=== PATIENT | female | born 1990 | race African-American/Black ===

== ENCOUNTER 2019-01-10 13:02 | Inpatient (IN) | payer MEDICAID ==
[2019-01-10 18:48] VITALS: BP 106/65; BMI 29.9
[2019-01-10 18:55] LABS: UDS - AMPHET NEGATIVE QUAL (NEGATIVE); UDS - BARB NEGATIVE QUAL (NEGATIVE); UDS - BENZO NEGATIVE QUAL (NEGATIVE); UDS - COCAINE NEGATIVE QUAL (NEGATIVE); UDS - OPIATE NEGATIVE QUAL (NEGATIVE); UDS - PCP NEGATIVE QUAL (NEGATIVE); UDS - THC NEGATIVE QUAL (NEGATIVE)
[2019-01-10 19:46] LABS: HEMATOCRIT 32.2 % (36.0-48.0); HEMOGLOBIN 10.4 g/dL (12-16); MCH 25.7 pg (26.0-34.0); MCHC 32.3 g/dL (31.0-37.0); MCV 79.7 fL (80.0-100.0); MEAN PLATELET VOLUME 11.3 fL (7.4-10.4); RBC 4.04 10x6/uL (4.00-5.40); RDW 15.4 % (11.5-14.5); WBC 7.8 10x3/uL (4.8-10.8)
[2019-01-11] VITALS (7 sets, daily range): BP systolic 98–114; BP diastolic 65–74
--- NOTE | 2019-01-11 10:39 | NUR ---
BABY AT 1026
--- NOTE | 2019-01-11 11:39 | NUR ---
RECEIVED FROM RECOVERY ROOM S/P C/S FOR INTOLERANCE TO LABOR. ASSESSMENT COMPLETED, SEE SHIFT ASSESSMENT FORM. U/3 FIRM MIDLINE, RUBRA SMALL. IV PATENT RIGHT WRIST, SIDDIQUI DRAINING CLEAR YELLOW URINE AND ATTACHED TO RIGHT LEG. SCD'S IN PLACE AND PLACE ON PUMP, WORKING BILATERALLY. ICE PACK OVER INCISIONAL DRESSING. CLEAN SIMA-PAD X 2 PLACED. ICE WATER AT BEDSIDE. INSTRUCTED TO SIP ON FLUIDS TO BEGIN WITH. SIDE RAIL UP X 2 CALL LIGHT IN REACH. IN NURSERY. NO CURRENT VISITORS.
--- NOTE | 2019-01-11 11:58 | NUR ---
U/3 FIRM MIDLINE, RUBRA SMALL. INSTRUCTED ON INCENTIVE SPIROMETER, USED X 3 AT THIS TIME WITH WEAK COUGH. INSTRUCTED ON SPLINTING OF INCISION, SMALL PILLOW GIVEN FOR USE. DENIES PAIN, CAN MOVE LEFT FOOT SLIGHTLY.
--- NOTE | 2019-01-11 12:13 | NUR ---
U/3 FIRM MIDLINE, RUBRA SMALL TO MOD, CLEAN SIMA-PADS PLACED, NO ACTIVE BLEEDING. VISITORS IN ROOM. DENIES PAIN, MOVES RIGHT LEG SLIGHTLY BACK AND FORTH. DROWSY BUT AROUSES EASILY. SIDE RAILS UP X 2, CALL LIGHT IN REACH.
--- NOTE | 2019-01-11 12:28 | NUR ---
U/3 FIRM, MIDLINE RUBRA SCANT. PLANS TO . FOB IN ROOM, CLEAR LIQUID DIET AT BEDSIDE. DRANK 250 ML WATER. SIDE RAILS X 2 , CALL LIGHT IN REACH.
--- NOTE | 2019-01-11 13:05 | NUR ---
POSITIONED TO RIGHT SIDE AFTER USING INCENTIVE SPIROMETER. RUBRA SMALL TO MOD, CLEAN SIMA-PADS X 2 PLACED, U/3 FIRM MIDLINE. NO REQUESTS. DENIES PAIN, UNABLE TO MOVE LE COMPLETELY, CANNOT BEND AT KNEES YET. SCDS IN PLACE AND FUNCTIONING, SIDDIQUI DRAINING. SIDERAILS UP X 2, CALL LIGHT IN REACH. FOB IN ROOM.
--- NOTE | 2019-01-11 13:22 | NUR ---
100 CLEAR EMESIS. DISCUSSED NAUSEA AND ENCOURAGED TO CONSIDER ONLY ICE CHIPS FOR AWHILE. OFFERED PHENERGAN WHICH SHE DESIRES. PHENERGAN 12.5 MG GIVEN SLOW IVP. NO SIGNS OF INFILTRATION. SIDE RAILS UP X 2, CALL LIGHT IN REACH, FOB AND INFANT IN ROOM. COOL WASHCLOTH PLACED BACK OF NECK. CLEAN EMESIS BAG GIVEN.
--- NOTE | 2019-01-11 14:00 | NUR ---
FEELING BETTER AFTER PHENERGAN, DESIRES TO TRY TO EAT JELLO. DROWSY BUT EASILY AROUSED. FOB IN ROOM. SIDE RAILS UP X 2, CALL LIGHT IN REACH. MOVE LE SLIGHTLY. DENIES PAIN.
--- NOTE | 2019-01-11 14:23 | NUR ---
DENIES NAUSE BUT FEELS DROWSY. EXPLAINED THAT IS PROBABLY THE PHENERGAN. MOVE LE SLIGHTLY, DENIES PAIN. SIDERAILS UP X 2, CALL LIGHT IN REACH.
--- NOTE | 2019-01-11 14:42 | NUR ---
SLEEPING, HOLDING PHONE IN HAND. RESPIRATIONS EVEN. AND FOB IN NURSERY TO GIVE BATH. SIDERAILS UP X 2, CALL LIGHT IN REACH.
--- NOTE | 2019-01-11 15:41 | NUR ---
SITTING UP IN BED. AWAKE. 2-3/10 INCISIONAL ACHING, FRESH ICE PACK PLACED. CAN MOVE LE SOME BUT CANNOT BEND COMPLETELY AT KNEES AND CANNOT LIFT BUTTOCKS UP. CLEAN CHUX AND PER-PADS PLACED. U/2 FIRM MIDLINE, RUBRA MOD ON PAD, NO ACTIVE BLEEDING NOTED. SIDDIQUI DRAINING, IV INFUSING WITHOUT EVIDENCE OF INFILTRATION. DESIRES TO TRY TO EAT. DENIES NAUSEA. WILL TRY JELLO AND SIPS OF FLUIDS. FOB IN ROOM. SIDERAILS UP X 2, CALL LIGHT IN REACH. TO CALL IF PAIN INCREASES OR NEEDING ANYTHING FOR PAIN. VERBALIZED UNDERSTANDING.
--- NOTE | 2019-01-11 15:59 | NUR ---
DILAUDED 1 MG GIVEN SLOW IVP FOR 3/10 INCISIONAL ACHING. UNABLE TO MOVE LE FULLY BUT SAYS SHE FEELS ACHING. DESIRED PAIN MEDICATION AT THIS TIME. SIDE RAILS UP X 2, CALL LIGHT IN REACH.
--- NOTE | 2019-01-11 16:40 | NUR ---
SITTING UP IN BED LOOKING AT CELL PHONE. DENIES PAIN AT THIS TIME. REGULAR DIET ON BEDSIDE STAND. SAYS SHE ONLY PLANS TO EAT A LITTLE. DENIES N&V. VISITORS IN ROOM. SIDE RAILS UP X 2, CALL LIGHT IN REACH.
--- NOTE | 2019-01-11 17:25 | NUR ---
PT C/O ITCHING BACK, LEGS, ARMS. DR BERGERON NOTIFIED AND ORDERS RECEIVED FOR BENADRY. EXPLAINED TO PT POSSIBLY FROM THE DILAUDID WHICH IS A FREQUENT COMPLAINT. BENADRYL 25 MG GIVEN SLOW IVP FOR RELIEF OF PRURITIS. EXPLAINED TO PT MAY MAKE HER FEEL DROWSY. HAS PO MEDS ORDER, WILL CONSIDER SWITCHING TO THEM VS IVP DILUADID. VERBALIZED UNDERSTANDING.
--- NOTE | 2019-01-11 18:15 | NUR ---
SITTING UP IN BED TEXTING. DENIES PAIN 0/10. SAYS SHE NO LONGER HAS ITCHING. STILL EATING DINNER. NO REQUESTS. SIDERAILS UP X 2, CALL LIGHT IN REACH.
--- NOTE | 2019-01-11 19:03 | NUR ---
RUBRA MOD ON SIMA-PADS. CLEAN CHUX AND SIMA-PADS PLACED. POSITIONED TO RIGHT SIDE. INCENTIVE SPIROMETER USED X 3, WEAK COUGH. ENCOURAGED TO CONTINUE TO USE HOURLY AND PURPOSE OF USE. VISITORS AND INFANT IN ROOM. SIDDIQUI TRAINING YELLOW URINE. IV INFUSING WITHOUT SIGNS ON INFILTRATION IN RIGHT WRIST. NO REQUESTS. ATE 25% OF REGULAR DIET. SIDE RAILS UP X 2, CALL LIGHT IN REACH.
--- NOTE | 2019-01-11 19:26 | NUR ---
PT. AWAKE AND ORIENTED. SITTING UP IN BED WITH HOB AT 90 DEGREES. CHEERFUL. REPORTS THAT SHE IS PAIN FREE. DENIES ANY NUMBNESS IN LOWER EXTREMITIES. NUMEROUS VISITORS IN ROOM. ABD. DRESSING DRY AND INTACT. ICE CAP NOTED ON DRESSING AREA. SIDDIQUI PATENT AND DRAINING WITH 175CC IN URINE METER. IV INFUSING IN RT WRIST. NO REDNESS NOR EDEMA NOTED. SCDS ON AND FUNCTIONAL. BREATH SOUNDS CLEAR AND BOWEL SOUNDS AUDIBLE. PT. REPORTS THAT SHE HAS BEEN USING INCENTIVE SPIROMETER AND ENCOURAGED TO COUGH AND DEEP BREATH. EXPLAINED IMPORTANCE OF CHANGING POSITION IN BED AND NOT STAYING ON BACK. DISCUSSED THAT SHE WILL TURN WHEN INFANT LEAVES ROOM AND VISITORS.
--- NOTE | 2019-01-11 19:47 | NUR ---
TORADOL 30 MG GIVEN. PAIN SCORE 0 AT THIS TIME. PT. CHEERFUL AND NUMEROUS VISITORS IN ROOM. BEING FED BY VISITOR.
--- NOTE | 2019-01-11 20:26 | NUR ---
SANDWICH TRAY SERVED.
--- NOTE | 2019-01-11 21:02 | NUR ---
DR. BERGERON CALLED AND INQUIRED IF PT. COULD BE NORMALIZED. INFORMED PT. NOT REQUIRING PAIN MEDS AND NO NUMBNESS IN LEGS NOTED. STATES TO PROCEDE WITH NORMALIZING.
--- NOTE | 2019-01-11 21:15 | NUR ---
POC DISCUSSED WITH PT. PT. AGREEABLE TO ALL. IV SALINE LOCKED. PT. INFORMED PAIN MEDS WILL BE ORAL AND SHE NEEDS TO LET NURSE KNOW IF ANYTHING NEEDED. PT. STATED UNDERSTANDING. SIDDIQUI CATH. DCED WITH 150CC IN URINE METER. PT. INFORMED THAT SHE WILL NEED TO CALL NURSE BEFORE SHE GETS UP FIRST TIME. PT. STATES UNDERSTANDING. INQUIRED HOW LONG SCDS WOULD HAVE TO STAY ON. INFORMED PT. THAT WE WOULD LEAVE IN PLACE UNTIL SHE GETS UP TO BATHROOM. EXPLAINED RATIONAL FOR SCD USE AND PT. STATES UNDERSTANDING.
--- NOTE | 2019-01-11 22:40 | NUR ---
PT. LOOKING ON PHONE. DENIES ANY PAIN OR NEEDS. FOB ON SOFA.
--- NOTE | 2019-01-11 22:41 | NUR ---
INFANT BACK TO ROOM PER NBN NURSE.
--- NOTE | 2019-01-12 00:20 | NUR ---
FOB AT JIRA DEVELOPER, REPORTS THAT PT'S NEEDS SOME ASSISTANCE, THIS RN TO ROOM, VS OBTAINED, PT UP TO BR WITH ASSISTANCE, GAIT STEADY, VOIDED 600 MLS OF BLOOD TINGED URINE WITH NO DIFFICULTY, SIMA CARE DONE WITH WET WARM WIPES, ASSISTED PT WITH SIMA CARE, PANTIES AND PADS, CHANGED PINK PAD, BLUE CHUX, TOP SHEET AND BLANKET ON BED, PT BACK TO BED, SCD'S RECONNECTED AND WORKING PROPERLY, FRESH ICE PACK TO ABD, REQUESTED AND SERVED CUP OF ICE, PT DENIES FURTHER NEEDS
[2019-01-12 00:45] VITALS: BP 92/57
--- NOTE | 2019-01-12 00:45 | NUR ---
SALINE LOCK IN RIGHT WRIST INTACT WITH NO REDNESS OR EDEMA, FLUSHED WITH 5MLS OF NS WITH NO DIFFICULTY, ADM TORADOL DILUTED IN 5MLS OF NS SIVP PER MD ORDERS, SALINE LOCK FLUSHED AGAIN, ADM PERCOCET PO PER MD ORDERS, SEE EMAR, PT DENIES FURTHER NEEDS
--- NOTE | 2019-01-12 02:14 | NUR ---
PT RESTING WITH EYES CLOSED, RESP QUIET, NO DISTRESS NOTED, LEFT UNDISTURBED AT THIS TIME, IN OPEN CRIB CART AND FOB AT BEDSIDE
[2019-01-12 03:43] VITALS: BP 101/65
--- NOTE | 2019-01-12 03:43 | NUR ---
PT AWAKE, VISITING WITH FOB, IN OPEN CRIB CART AT BEDSIDE, VS OBTAINED, SCD'S PLACED BACK ON, PT REPORTS REMOVING THEM TO AMB IN ROOM, SCD'S BACK ON AND WORKING PROPERLY, PT DENIES FURTHER NEEDS OR PAIN
--- NOTE | 2019-01-12 04:53 | NUR ---
SITTING WITH INFANT IN HER LAP MAKING PICTURES . CHEERFUL AND DENIES ANY NEEDS.
--- NOTE | 2019-01-12 06:22 | NUR ---
PT. STATES THAT SHE JUST GOT UP TO BATHROOM AND DESIRED PAIN MEDICATION. STATES SHE DESIRES THE SAME SHE HAD EARLIER IN NIGHT. PAIN MED GIVEN ORDERED FOR PAIN SCORE OF 4 OF 10 FOR INCISIONAL PAIN. ICE CAP REFILLED FOR PT. TO PLACE OVER ABD. DRESSING. 500CC URINE WITH CURRENT VOID. PT. CHEERFUL. FOB LYING ON SOFA.
[2019-01-12 07:00] LABS: BASOPHILS 0.1 % (0-2); EOSINOPHILS 0.3 % (0-7); HEMOGLOBIN 9.6 g/dL (12-16); IMMATURE GRANULOCYTES 0.3 % (0-5); LYMPHOCYTES 14.4 % (15-50); MCH 25.4 pg (26.0-34.0); MCV 79.4 fL (80.0-100.0); MEAN PLATELET VOLUME 11.2 fL (7.4-10.4); MONOCYTES 5.3 % (2-11); NEUTROPHILS 79.6 % (40-80); PLATELET COUNT 173 10x3/uL (130-400); RBC 3.78 10x6/uL (4.00-5.40); RDW 15.5 % (11.5-14.5)
[2019-01-12 07:01] LABS: WBC 13.1 10x3/uL (4.8-10.8)
[2019-01-12 07:25] VITALS: BP 101/66
--- NOTE | 2019-01-12 07:33 | NUR ---
SITTING UP IN BED. FOB BABY ON COUCH BOTTLE FEEDING . ALERT AND ORIENTED. SHIFT ASSESSMENT COMPLETED. DENIES NEEDING ANYTHING. DENIES PAIN. VOIDING WITHOUT DIFF. HAS NOT PASSED FLATUS YET. ENCOURAGE OOB AMBULATING IN [place] SEVERAL TIMES TODAY. VERBALIZED UNDERSTANDING. HAS CELL PHONE IN HAND TEXTING. THIS RN HAS NOT SEE PATIENT HOLDING THIS INFANT IN THE LAST TWO DAYS. NURSERY RN NOTIFIED TO BE OBSERVANT. REGULAR DIET AT BEDSIDE. SIDE RAILS UP X 2, CALL LIGHT IN REACH. ICE PACK ON INCISION, DISCUSSED US FOR 24 HOURS. NOT CURRENTLY USING SCD'S SECONDARY TO BEING AMBULATORY.
[2019-01-12 08:13] LABS: RAPID PLASMA REAGIN Non Reactive (Non Reactive)
--- NOTE | 2019-01-12 09:01 | NUR ---
B+, RUBELLA IMMUNE, GBS POSITIVE, RECEIVED TDAP DURING . NON-SMOKER. ANTICIPATE DC HOME TOMORROW.
--- NOTE | 2019-01-12 09:27 | NUR ---
HOLDING INFANT IN ARMS AND LOOKING AT BABY. SAYS SHE DIDN'T HOLD BABY YESTERDAY BECAUSE OF MEDICATIONS. SAYS SHE IS HAPPY WITH AND SMILING. ASKED THAT INFANT BE PLACED IN CRIB NOW SINCE THE IS SLEEPING. PT UP AD SHAMIR TO VOID. WILL SHOWER THIS AM AFTER MD MAKES ROUNDS. DENIES PAIN AT THIS TIME. SIDE RAILS UP X 2, CALL LIGHT IN REACH. PT RAISES BED TO HIGHER POSITION, LOWERS IT WHEN GETTING OUT OF BED.
--- NOTE | 2019-01-12 09:35 | NUR ---
DR BERGERON VISITED PT.
[2019-01-12] MEDS ORDERED: IBUPROFEN800 MG PO (09:37)
[2019-01-12] MEDS ORDERED: PERCOCET 7.5/321 TAB PO (09:38)
--- NOTE | 2019-01-12 10:05 | NUR ---
SITTING UP IN BED. IN CRIB. FOB SLEEPING ON COUCH. DENIES PAIN OR NEEDING ANYTHING. DESIRES TO WAIT TO TAKE SHOWER, WOULD LIKE TO WAIT AT LEAST AN HOUR. NO REQUESTS. TO CALL WHEN READY TO SHOWER OR NEEDING ANYTHING. INSTRUCTED WILL NEED TO AMBULATE IN [place] TODAY. STATES "I HAVE BEEN TO BATHROOM". INSTRUCTED NEEDS TO INCREASE WALKING. VERBALIZED UNDERSTANDING.
--- NOTE | 2019-01-12 11:35 | NUR ---
TALKING ON PHONE BUT SAYS SHE IS READY TO TAKE SHOWER. IN NURSERY. ALL ITEMS FOR SHOWER PLACED IN BR. TO CALL WHEN READY FOR ASSISTANCE. SHOOK HEAD YES.
--- NOTE | 2019-01-12 12:12 | NUR ---
AMBULATING IN ROOM. GETTING READY TO SHOWER. INSTRUCTED ON CARE OF INCISION AND CLEANING. VERBALIZED UNDERSTANDING. FOB IN ROOM WITH . TO CALL IF ANYTHING IS NEEDED. SHOWER CHAIR IN SHOWER, INSTRUCTED ON USE OF EMERGENCY CALL LIGHT IF NEEDED.
--- NOTE | 2019-01-12 12:37 | NUR ---
HAS NOT MADE IT TO SHOWER. VISITORS X 3 AND INFANT IN ROOM. SITTING ON BEDSIDE GETTING READY TO EAT LUNCH.
--- NOTE | 2019-01-12 13:03 | NUR ---
UP IN SHOWER NOW. LINEN CHANGE COMPLETED. FOB IN ROOM WITH .
[2019-01-12 14:11] VITALS: BP 95/57
--- NOTE | 2019-01-12 14:19 | NUR ---
SITTING ON EDGE OF BED EATING LUNCH. VISITORS X 3 IN ROOM WITH . C/O 12/24 BACK ACHING. ENCOURAGED AMBULATION IN [place]. WILL GIVE SCHEDULED MOTRIN.
--- NOTE | 2019-01-12 14:24 | NUR ---
MOTRIN 600 MG GIVEN PO FOR RELIEF OF 6/10 MID BACK STABBING PAIN. STATES "I WAS DOING GOOD UNTIL JUST A FEW MINUTES AGO." SAYS SHE IS PASSING A LITTLE GAS. NO ACUTE DISTRESS NOTED. WILL AMBULATE IN [place] AFTER EATING. VISITORS IN ROOM, BOTTLEFEEDING . SIDE RAILS UP X 2, CALL LIGHT REMAINS IN REACH.
--- NOTE | 2019-01-12 14:25 | NUR ---
INCISION CLEAN AND DRY, INTACT WITH DERMABOND, SIMA-PAD OVER INCISION, REINFORCED IMPORTANCE OF CHANGING PAD FREQUENTLY VERBALIZED UNDERSTANDING.
--- NOTE | 2019-01-12 15:49 | NUR ---
LAYING IN BED WATCHING TV. NO CURRENT VISITORS. INFANT IN CRIB MOVING ARMS AROUND. INSTRUCTED PT NEEDS TO AMBULATE IN [place]. SAYS NO ONE IS THERE TO WATCH BABY, EXPLAINED THAT WE CAN WALK WITH INFANT IN CRIB. PT DESIRES TO WAIT 30 MINS.
--- NOTE | 2019-01-12 16:48 | NUR ---
AMBULATED AROUND L&D X 2. PERCOCET 5 MG GIVEN PO FOR RELIEF OF 7/10 INCISIONAL PULLING AFTER DISCUSSING PAIN MANAGEMENT OPTIONS. AMBULATED TO NURSERY AND WAS SHOWN WHERE SHE CAN GET DRINKS AND SNACKS. ENCOURAGED PT TO GET OOB MUCH POSSIBLE, EXPLAINING THAT THIS WILL HELP HER TO START FEELING BETTER VS LAYING IN BED ALL DAY WHICH CAN INCREASE ACHES AND PAINS. VERBALIZED UNDERSTANDING AND ASKED IF SHE CAN WALK AGAIN WHEN FOB RETURNS. INSTRUCTED SHE CAN WALK ANYTIME SHE WOULD LIKE. REGULAR DIET SERVED. SITTING ON EDGE OF BED. INFANT IN CRIB.
--- NOTE | 2019-01-12 18:03 | NUR ---
SITTING UP IN BED EATING DINNER. VISITOR IN ROOM. INCISIONAL PULLING IS BETTER, NO 09/23. NO REQUESTS. SIDE RAILS UP X 2, CALL LIGHT IN REACH. TO CALL IF ANYTHING IS NEEDED.
--- NOTE | 2019-01-12 19:35 | NUR ---
WALKING IN HALLWAY. GAIT STEADY.
[2019-01-12 19:43] VITALS: BP 106/55
--- NOTE | 2019-01-12 19:43 | NUR ---
WALKING ABOUT IN ROOM. REPORTS PASSING FLATUS. STATES SHE HAS EATEN "A LOT" TODAY. SITS ON SIDE OF BED FOR ASSESSMENT. BREATH SOUNDS CLEAR AND BOWEL SOUNDS ACTIVE. VOIDING WITHOUT DIFFICULTY. ABD. INCISION WITHOUT DRAINAGE OR REDNESS. SIMA PAD NOTED AT INCISION SITE TO WICK MOISTURE. DENIES ANY PAIN IN LOWER EXTREMITIES. SKIN WARM AND DRY.
--- NOTE | 2019-01-12 21:47 | NUR ---
C/O PAIN 01/23 ABD SORENESS, BACK ACHE AND INCISIONAL BURNING. PERCOCET AND SCHEDULED MOTRIN GIVEN PER ORDER AND PT REQUEST. DENIES ADDITIONAL NEEDS. CONVERSING WITH FAMILY CURRENTLY. BED IN LOW POSITION WITH UPPER SIDE RAILS RAISED X2. CALL LIGHT AND PHONE WITHIN REACH. WILL CONTINUE TO MONITOR.
[2019-01-12 23:00] VITALS: BP 98/55
--- NOTE | 2019-01-12 23:00 | NUR ---
PT. ON BACK WITH HOB AT 45 DEGREES FILLING OUT PAPERWORK FOR NURSERY. VITAL SIGNS OBTAINED. PT. REPORTS PAIN RELIEVED FROM EARLIER PAIN MED AND RATES A 2 OF 10 ON PAIN SCALE. IN OPEN CRIB AT BEDSIDE ASLEEP. FOB IN ROOM WITH PT.
--- NOTE | 2019-01-13 00:28 | NUR ---
INFANT TO ROOM FOR FEEDING.PT. DENIES ANY NEEDS.
--- NOTE | 2019-01-13 01:26 | NUR ---
LYING ON BACK WITH HOB AT 30 DEGREES. PT. LOOKING ON PHONE. DENIES ANY NEEDS.
--- NOTE | 2019-01-13 03:00 | NUR ---
AWAKE WHEN THIS NURSE ENTERED ROOM. PT. STATES THAT SHE WAS ASLEEP BUT AWAKENED WHEN DOOR WAS OPENED. DENIES ANY NEEDS.
--- NOTE | 2019-01-13 05:20 | NUR ---
LYING ON BACK WITH HOB AT 30 DEGREES. EYES CLOSED AND RESPIRATIONS UNLABORED.
--- NOTE | 2019-01-13 06:34 | NUR ---
STANDING UP IN ROOM HOLDING AND FEEDING BOTTLE. PT. CHEERFUL AND COMMENTS THAT SHE GOT SOME SLEEP LAST NIGHT.
[2019-01-13 07:26] VITALS: BP 104/58
--- NOTE | 2019-01-13 07:30 | NUR ---
ASSUME CARE OF THIS PATIENT. SITTING UP IN BED, INFANT IN NURSERY. SHIFT ASSESSMENT COMPLETED. SALINE LOCK WAS DC'D BY THIS RN YESTERDAY AFTERNOON WITH TIP INTACT. ANTICIPATE DC HOME TODAY. NEIGHBORHOOD WORKER, B+ RUBELLA IMMUNE RECEIVED TDAP IN CLINIC DURING . NON-SMOKER. SIDE RAILS X 2. CALL LIGHT.
--- NOTE | 2019-01-13 08:18 | NUR ---
SITTING UP IN BED. MOTRIN 600 MG GIVEN FOR RELIEF OF 5/10 ABDOMINAL CRAMPING. NEXT SCHEDULED DOSE DUE AT 1430. INSTRUCTED PT TO LET RN KNOW IF PAIN NOT RELIEVED OR IF SHE NEEDS ADDITIONAL PAIN MED. VERBALIZED UNDERSTANDING. FOB AND IN ROOM. CALL LIGHT IN REACH.
--- NOTE | 2019-01-13 08:45 | NUR ---
DR BERGERON ON L&D MAKING ROUNDS.
--- NOTE | 2019-01-13 09:26 | NUR ---
SITTING UP ON COUCH BOTTLE FEEDING . CRAMPING 0/10 BUT C/O STRETCHING OF INCISION 5/10. DESIRES PERCOCET. PERCOCET 5 MG GIVEN. DC TEACHING COMPLETED TO INCLUDE VERBAL AND WRITTEN INFORMATION ON POST OP C/S CARE, S&S INFECTION, PP DEPRESSION, DANGER SIGNS, BOTTLEFEEDING, BREASTCARE, MEDICATION ADMINISTRATION, AND F/U. VERBALIZED UNDERSTANDING. NO SPECIFIC QUESTIONS AT THIS TIME. WILL DC HOME WHEN INFANT DC'D.
--- NOTE | 2019-01-13 10:56 | NUR ---
AMBULATING IN ROOM. PACKING ITEMS IN PREPARATION FOR DC. SAYS HER INCISIONAL PAIN IS MUCH BETTER. 08/26. NO REQUESTS. VISITORS AND INFANT IN ROOM. WAITING ON INSURANCE CLAIMS EXAMINER FOR DC.
--- NOTE | 2019-01-13 12:45 | NUR ---
DC VIA WHEELCHAIR TO CAR BY Davonte NGUYEN RN NURSERY. IN CARSEAT. ALL BELONGINGS REMOVED FROM ROOM. HAS PRESCRIPTIONS AND WRITTEN INSTRUCTIONS.
--- NOTE | 2019-01-15 07:50 | OP ---
PATIENT NAME: NU WHITE MEDICAL RECORD: [id number] :89 LOCATION:[id number] ADMISSION DATE:01/10/19 SURGEON: SAMUEL LICONA MD DATE OF OPERATION: 01/11/2019 PREOPERATIVE DIAGNOSES: 1. at 40 weeks' gestation. 2. Nonreassuring tracing. POSTOPERATIVE DIAGNOSES: 1. Mother delivered at 40 weeks. 2. Nonreassuring tracing. PROCEDURE: Primary low transverse section. SURGEON: Samuel Licona MD EMT INTERMEDIATE: Jatinder Zavala CRNA ANESTHESIOLOGIST: Dr. Corrales. ANESTHESIA: General anesthetic with endotracheal intubation. FINDINGS: Viable male , vertex presentation, Apgars 9 and 9, weight 3050 grams. Unremarkable uterus, tubes and ovaries bilaterally. SPECIMEN REMOVED: Placenta. SPECIMEN DISPOSITION: Discarded. ESTIMATED BLOOD LOSS: 700 cc. FLUIDS: 1600 cc lactated Ringer's. URINE OUTPUT: 550 cc of clear urine. COMPLICATIONS: None. DRAINS: [id number]. INDICATION: The patient is a 28-year-old G2, para 1 in active labor. The patient is ruptured and has continuous lumbar epidural started. Prior to rupturing, the patient was noted to have repetitive late decelerations with decreased gsig-ue-[id number] variability. The decreased ibje-me-vjwj variability and late decelerations returned. Upon checking the patient, there has been no further dilation and with stress noted in labor the patient was counseled and section was consented to. DESCRIPTION OF PROCEDURE: After verbal consent was given and rapid sequence induction, the begins. The patient had previously been prepped and draped, now has an incision made in the lower abdomen, carried down to the underlying layer of the fascia, which was opened and extended laterally. The abdomen was entered using a Pelosi technique. DeLee all-purpose retractors inserted. Low transverse hysterotomy was performed and the infant was delivered onto the abdomen. The cord was doubly clamped and cut and the infant was passed OPERATIVE REPORT [id number] NU WHITE to the attendance. The cord blood sample and blood gases taken. The placenta was delivered via Crede maneuver. Uterus exteriorized, cleared of all clot and debris. The hysterotomy was now closed with a running locked stitch of chromic. After this had been performed, the pelvis was irrigated and the irrigant removed. The uterus was returned to the abdomen and inspection of the hysterotomy reveals adequate hemostasis. Pelvis again was irrigated and irrigant removed. The rectus bellies were reapproximated with a loose chromic stitch in the midline. The rectus bellies were inspected and found to be hemostatic. The fascia was closed with looped PDS. Subcutaneous tissue was irrigated. Bleeding vessels cauterized and the skin reapproximated with a stitch. Dermabond was applied. Sponge, lap, and needle count was correct times 3. TRANSINT:[id number] Voice Confirmation ID: [id number] DOCUMENT ID: [id number] SAMUEL LICONA MD at 0750 CC: [id number] DICTATION DATE: 01/11/19 1101 ED PHYSICIANS: 01/11/19 1303 DIS IN 01/13/19 [facility] [address] [place] [address]
--- NOTE | 2019-01-28 12:58 | MORECARE ---
CASE MANAGEMENT DISCHARGE SUMMARY PATIENT: NU WHITE UNIT: [id number] ADM DATE: 01/10/19 AGE: 28 : 90 SEX: F ROOM/BED: D.1278 AUTHOR: LOUISE TIRADO PHYSICIAN: REFERRING PHYSICIAN: BEV LICONA MD DATE OF SERVICE: 01/28/19 Discharge Plan Patient Name: NU WHITE [facility] : 1990 Planned Disposition: Anticipated Discharge Date: Discharge Date: 01/13/2019 Expected LOS: Initial Reviewer: [email or web address] Initial Review Date: 01/10/2019 Generated: 01/28/19 1:58 pm Patient Name: NU WHITE Page [id number] at 1258 All edits/amendments must be made on the electronic document DICTATION DATE: 01/28/19 1258 SALES REPRESENTATIVE [employer] GOODS: LELO 01/28/19 1258 RPT#: [id number] DC DATE:01/13/19 STATUS: DIS IN [facility] [address] [place] [address] END OF REPORT
== END 2019-01-13 12:45 | disposition home or self-care (01) | DRG 788 ==
LOC: D.LD
PROVIDERS: ADMIT Obstetrics & Gynecology; ATTEND Obstetrics & Gynecology
PROC: 3E033VJ Introduction of Other Hormone into Peripheral Vein, Percutaneous Approach (ICD-10-PCS; 2019-01-11)
PROC: 10D00Z1 Extraction of Products of Conception, Low, Open Approach (ICD-10-PCS; principal; 2019-01-11 09:54)
DX: O99.824 Streptococcus B carrier state complicating childbirth (principal); Z3A.39 39 weeks gestation of pregnancy; Z37.0 Single live birth; O76 Abnormality in fetal heart rate and rhythm complicating labor and delivery